=== PATIENT | female | born 1995 | race Hispanic/Latino ===

== ENCOUNTER 2016-11-03 06:12 | Emergency (ER) | payer MEDICAID ==
[2016-11-03 08:26] LABS: Basophils % (Auto) 1.1 % (0.0-1.8); Eosinophils % (Auto) 1.8 % (0.0-4.3); Hematocrit 37.8 % (30.3-42.9); Hemoglobin 12.7 gm/dl (10.1-14.3); Mean Corpuscular HGB Conc 34 % (30-34); Mean Corpuscular Hemoglobin 28 pg (28-32); Mean Corpuscular Volume 83 fl (79-97); Platelet Count 293 K/mm3 (140-440); Red Blood Count 4.54 M/mm3 (3.65-5.03)
[2016-11-03 08:31] LABS: Bacteria,Urine 1+ /HPF (Negative); Bilirubin,Urine NEG (Negative); Blood,Urine LG (Negative); Ketones,Urine NEG (Negative); Leukocyte Esterase,Urine NEG (Negative); Nitrite,Urine NEG (Negative); Urobilinogen,Urine < 2.0 mg/dL (<2.0)
[2016-11-03 08:34] LABS: RBC,Urine > 182.0 /HPF (0.0-6.0)
[2016-11-03 08:46] LABS: Alanine Aminotransferase 34 units/L (7-56); Albumin 3.8 g/dL (3.9-5); Albumin/Globulin Ratio 1.1 %; Alkaline Phosphatase 123 units/L (35-129); BUN/Creatinine Ratio 16.66; Bilirubin,Total < 0.2 mg/dL (0.1-1.2); Blood Urea Nitrogen 15 mg/dL (7-17); Calcium 9.4 mg/dL (8.4-10.2); Carbon Dioxide 25 mmol/L (22-30); Glucose 91 mg/dL (65-100); Lipase 33 units/L (13-60); Total Protein 7.2 g/dL (6.3-8.2)
[2016-11-03 08:47] LABS: Anion Gap 17 mmol/L; Potassium 5.1 mmol/L (3.6-5.0); Sodium 137 mmol/L (137-145)
--- NOTE | 2016-11-03 17:17 | Emergency Department Report ---
HPI - General Chief Complaint: Vaginal Bleeding Time Seen by Provider: 11/03/16 16:43 - HPI HPI: Room 1 The patient is a 21-year-old female presenting with a chief complaint of pelvic pain and vaginal bleeding. The patient states she began having pelvic pain and vaginal bleeding approximately one week ago. Patient describes the pain as sharp in addition to dull and aching in nature. The patient states the vaginal bleeding has increased over the past few days. The patient states she just started using a panty liner today and has only gone through 1. The patient currently gives her pain a score of 2-3/10. The patient states she had a control implant placed 10/17/2016 Location: Pelvis Duration: One week Quality: see above Severity: see above Modifying factors: Unknown Context: see above Mode of transportation: not driving ED Past Medical Hx - Past Medical History Hx Hypertension: Yes (PRE-ECLAMPSIA) - Surgical History Additional Surgical History: 1 KIDNEY ATROPHIED. Chest tube - Family History Family history: no significant - Social History Smoking Status: Never Smoker Substance Use Type: None - Medications Home Medications: Home Medications Medication Instructions Recorded Confirmed Last Taken Type Vit No.130/Iron/FA 1 each PO DAILY 02/03/16 02/03/16 02/03/16 History [ Tablet] Magnesium Citrate [Citrate of 300 ml PO ONCE PRN #1 bottle 02/22/16 Unknown Rx Magnesia] Acetaminophen 325 mg PO Q4-6H #30 capsule 09/07/16 Unknown Rx HYDROcodone/APAP 5-325 [[place] 1 each PO Q6HR PRN #20 tablet 09/07/16 Unknown Rx 5/325] Labetalol [Normodyne TAB] 200 mg PO BID #60 tablet 09/07/16 Unknown Rx Multivitamin with Iron 1 each PO DAILY #30 tablet 09/07/16 Unknown Rx [Multivitamins with Iron] NIFEdipine XL [Procardia Xl] 30 mg PO QDAY #30 tablet 09/07/16 Unknown Rx Sulfamethoxazole/Trimethoprim 1 each PO BID #14 tablet 11/03/16 Unknown Rx [Bactrim DS TAB] traMADol [Ultram] 50 mg PO Q6HR PRN #14 tablet 11/03/16 Unknown Rx ED Review of Systems ROS: Stated complaint: VAG BLEEDING WITH PAIN Other details as noted in HPI Comment: All other systems reviewed and negative Constitutional: denies: chills, fever Eyes: denies: eye pain, eye discharge, vision change ENT: denies: ear pain, throat pain Respiratory: denies: cough, shortness of breath, wheezing Cardiovascular: denies: chest pain, palpitations Endocrine: no symptoms reported Gastrointestinal: denies: abdominal pain, nausea, diarrhea Genitourinary: hematuria, abnormal menses Musculoskeletal: denies: back pain, joint swelling, arthralgia Skin: denies: rash, lesions Neurological: denies: headache, weakness, paresthesias Psychiatric: denies: anxiety, depression Hematological/Lymphatic: denies: easy bleeding, easy bruising Physical Exam - Physical Exam Vital Signs: Vital Signs 11/03/16 11/03/16 07:26 16:02 Temperature 98.5 F Pulse Rate 72 Respiratory 18 16 Rate Blood Pressure 142/69 O2 Sat by Pulse 97 100 Oximetry Physical Exam: GENERAL: The patient is well-developed well-nourished female lying on stretcher not appearing to be in acute distress. Patient eating a sandwich HEENT: Normocephalic. Atraumatic. Extraocular motions are intact. Patient has moist mucous membranes. NECK: Supple. Trachea midline CHEST/LUNGS: Clear to auscultation. There is no respiratory distress noted. HEART/CARDIOVASCULAR: Regular. There is no tachycardia. There is no gallop rub or murmur. ABDOMEN: Abdomen is soft, nontender. Patient has normal bowel sounds. There is no abdominal distention. SKIN: There is no rash. There is no edema. There is no diaphoresis. NEURO: The patient is awake, alert, and oriented. The patient is cooperative. The patient has normal speech MUSCULOSKELETAL:There is no evidence of acute injury. PELVIC: Small amount of blood in the vaginal vault. No lesions seen ED Course Vital Signs 11/03/16 11/03/16 07:26 16:02 Temperature 98.5 F Pulse Rate 72 Respiratory 18 16 Rate Blood Pressure 142/69 O2 Sat by Pulse 97 100 Oximetry - Consultations Consultation #1: 11/03/16 19:19 Dr. Ronnell byrne 19:[address] Orellana.. Given patient antibiotics. Patient can be discharged to follow-up in the office next week 11/03/16 19:31 ED Medical Decision Making - Lab Data Result diagrams: 11/03/16 08:06 11/03/16 08:06 Laboratory Tests 11/03/16 11/03/16 11/03/16 08:06 08:06 08:06 WBC 11.0 RBC 4.54 Hgb 12.7 Hct 37.8 MCV 83 MCH 28 MCHC 34 RDW 13.0 L Plt Count 293 Lymph % (Auto) 26.4 [place] % (Auto) 3.5 Eos % (Auto) 1.8 Baso % (Auto) 1.1 Lymph # 2.9 [place] # 0.4 Eos # 0.2 Baso # 0.1 Seg Neutrophils % 67.2 Seg Neutrophils # 7.4 Sodium Potassium Chloride Carbon Dioxide BUN Creatinine Estimated GFR BUN/Creatinine Ratio Glucose Calcium Total Bilirubin AST ALT Alkaline Phosphatase Total Protein Albumin Albumin/Globulin Ratio Lipase HCG, Qual Negative Urine Color Red Urine Turbidity Cloudy Urine pH 5.0 Ur Specific [place] 1.013 Urine Protein 100 mg/dl Urine Glucose (UA) Neg Urine Ketones Neg Urine Blood Lg Urine Nitrite Neg Urine Bilirubin Neg Urine Urobilinogen < 2.0 Ur Leukocyte Esterase Neg Urine WBC (Auto) 8.0 H Urine RBC (Auto) > 182.0 U Epithel Cells (Auto) 3.0 Urine Bacteria (Auto) 1+ 11/03/16 08:06 WBC RBC Hgb Hct MCV MCH MCHC RDW Plt Count Lymph % (Auto) [place] % (Auto) Eos % (Auto) Baso % (Auto) Lymph # [place] # Eos # Baso # Seg Neutrophils % Seg Neutrophils # Sodium 137 Potassium 5.1 H Chloride 100.0 Carbon Dioxide 25 BUN 15 Creatinine 0.9 Estimated GFR > 60 BUN/Creatinine Ratio 16.66 Glucose 91 Calcium 9.4 Total Bilirubin < 0.2 AST 21 ALT 34 Alkaline Phosphatase 123 Total Protein 7.2 Albumin 3.8 L Albumin/Globulin Ratio 1.1 Lipase 33 HCG, Qual Urine Color Urine Turbidity Urine pH Ur Specific [place] Urine Protein Urine Glucose (UA) Urine Ketones Urine Blood Urine Nitrite Urine Bilirubin Urine Urobilinogen Ur Leukocyte Esterase Urine WBC (Auto) Urine RBC (Auto) U Epithel Cells (Auto) Urine Bacteria (Auto) - Radiology Data Radiology results: report reviewed (pelvic ultrasound), image reviewed (pelvic ultrasound) Pelvic ultrasound (read by radiologist)-small fibroid present of the posterior fundus of uterus. Otherwise negative ultrasound. Both ovaries appear normal in size and echogenicity with normal arterial and venous blood flow bilaterally. - Differential Diagnosis uterine fibroids, missed , ectopic , Critical care attestation.: If time is entered above; I have spent that time in minutes in the direct care of this critically ill patient, excluding procedure time. ED Disposition Clinical Impression: Uterine fibroid, Vaginal bleeding, Pelvic pain, UTI (urinary tract infection), Proteinuria Disposition: DISCHARGED TO HOME OR SELFCARE Is pt being admited?: No Does the pt Need Aspirin: No Condition: Stable Instructions: Uterine Fibroids (ED) Additional Instructions: Return to the emergency department immediately should you develop worsening symptoms, fever, inability to tolerate food or liquid or any other concerns. Prescriptions: Sulfamethoxazole/Trimethoprim [Bactrim DS TAB] 1 each PO BID #14 tablet traMADol [Ultram] 50 mg PO Q6HR PRN #14 tablet PRN Reason: Pain Referrals: BASSAM PATRICIO MD [Primary Care Provider] - 3-5 Days Time of Disposition: 19:38
--- NOTE | 2016-11-03 18:58 | Ultrasound Report ---
FINAL REPORT EXAM: US PELVIC COMPLETE HISTORY: vaginal bleeding . LMP 10/26/2016 TECHNIQUE: Ultrasound of the pelvis using transabdominal imaging PRIORS: None. FINDINGS: Uterus: Uterus is enlarged in size and mildly heterogeneous in echogenicity. The uterus measures 8.5 x 4.5 x 6.2 cm in size. There is a small hypoechoic focal fibroid extending off the posterior lateral right fundus measuring 1.7 x 1.3 x 1.5 cm. Endometrial stripe: Normal and uniform in thickness measuring 8.3 mm. Ovaries: Both ovaries appear normal in size and echogenicity with normal arterial and venous blood flow bilaterally. The right ovary measures 3.4 x 2.2 x 2.2 cm and the left ovary measures 3.3 x 2.2 x 2.5 cm in size. Multiple small follicles are present in the right ovary. Other: There is no evidence for solid adnexal mass or free fluid in the cul-de-sac is seen. IMPRESSION: Small fibroid present off the posterior fundus of the uterus. Otherwise, negative ultrasound
--- NOTE | 2016-11-03 18:58 | Ultrasound Report ---
FINAL REPORT EXAM: US TRANSVAGINAL HISTORY: vaginal bleeding TECHNIQUE: Ultrasound of the pelvis using transvaginal imaging PRIORS: None. FINDINGS: Uterus: Uterus is enlarged in size and mildly heterogeneous in echogenicity. The uterus measures 8.5 x 4.5 x 6.2 cm in size. There is a small hypoechoic focal fibroid extending off the posterior lateral right fundus measuring 1.7 x 1.3 x 1.5 cm. Endometrial stripe: Normal and uniform in thickness measuring 8.3 mm. Ovaries: Both ovaries appear normal in size and echogenicity with normal arterial and venous blood flow bilaterally. The right ovary measures 3.4 x 2.2 x 2.2 cm and the left ovary measures 3.3 x 2.2 x 2.5 cm in size. Multiple small follicles are present in the right ovary. Other: There is no evidence for solid adnexal mass or free fluid in the cul-de-sac is seen. IMPRESSION: Small fibroid present off the posterior fundus of the uterus. Otherwise, negative ultrasound FINDINGS: IMPRESSION:
[2016-11-03 19:42] VITALS: BP 126/79
== END 2016-11-03 19:53 | disposition home or self-care (01) ==
LOC: ED 06:12
DX: D25.9 Leiomyoma of uterus, unspecified (principal); N39.0 Urinary tract infection, site not specified; R80.9 Proteinuria, unspecified; R10.2 Pelvic and perineal pain; N93.9 Abnormal uterine and vaginal bleeding, unspecified
CPT/HCPCS: 36415; 76830; 76856; 80053; 81001; 83690; 84703; 85025